=== PATIENT | male | born 1960 | race Caucasian/White ===

== ENCOUNTER 2022-04-12 16:50 | Emergency (ER) | payer BC ==
[2022-04-12] MEDS: Ketorolac 30 MG/ML SDV ONE (17:02)
[2022-04-12] MEDS: Ketorolac 30 MG/ML SDV IVPUSH ONE (17:09)
[2022-04-12] MEDS: Sodium Chloride 0.9% 10 ML Syringe FLUSH PRN (17:17)
[2022-04-12] MEDS: Cyclobenzaprine 10 MG Tab ONE (18:05)
[2022-04-12] MEDS: Acetaminophen/HYDROcodone 325-5 MG Tab PO ONE (18:07)
[2022-04-12] MEDS: Cyclobenzaprine 10 MG Tab PO ONE ×2 (18:08→18:10)
== END 2022-04-12 18:17 | disposition home or self-care (01) ==
LOC: KA.ED 16:50
DX: M62.830 Muscle spasm of back (principal); M54.50 Low back pain, unspecified
CPT/HCPCS: 72100; 96374; 99283; 99283-25; A9270-GY; J1885; J3490